=== PATIENT | female | born 1980 | race Caucasian/White ===

== ENCOUNTER 2020-09-23 08:35 | Emergency (ER) | payer OTHER ==
--- OUTSIDE RECORDS SUMMARY | 2020-09-23 08:43 | XMS REPORT | Continuity of Care Document ---
:1980 Author Organization [facility] t Address [address] [place] [address] Care Team Providers Name Role Phone Vale GONGORA, T Attending Clinician Unavailable Lab, Fam Pob I Attending Clinician Unavailable Doctor Unassigned, Name Attending Clinician Unavailable Problems This patient has no known problems. Allergies, Adverse Reactions, Alerts This patient has no known allergies or adverse reactions. Medications This patient has no known medications. Procedures This patient has no known procedures. Encounters Start End Encounter Admission Attending Care Care Encounter Source Date/Time Date/Time Type Type Clinicians Facility Department ID 2020-05-02 2020-05-02 Letter MIGUEL Collazo [id number] 00:00:00 00:00:00 (Out) Lolita CARRILLOY [id number] [place] [id number] 2020-04-28 2020-04-28 Laboratory Lab, [facility] [id number] 09:44:20 10:04:20 Only Fam Pob I Health [id number] [place] [id number] [place] [phone] [address] 2020-04-28 2020-04-28 Letter Doctor RIVERA [id number] 00:00:00 00:00:00 (Out) LIBAN Méndez [id number] [place] [id number] Results This patient has no known results.
--- NOTE | 2020-09-23 09:31 | RAD REPORT ---
EXAM DESCRIPTION: RAD - Neck Soft Tissue - 09/23/2020 9:25 am CLINICAL HISTORY: Foreign body in the throat FINDINGS: A radiopaque foreign body is not visualized. Prevertebral soft tissues normal. No gross abnormality of the airway seen
--- NOTE | 2020-09-23 09:58 | EDPHYS ---
Physician Documentation [facility] Name: Malinda Tai Age: 40 yrs Sex: Female : 1980 Arrival Date: 09/23/2020 Time: 08:38 Bed 4 Private MD: Jostin Bowen HPI: 09/23 09:04 This 40 yrs old Female presents to ER via Unassigned with complaints of carlos Foreign Body In Throat - chicken bone. 09:04 The patient or guardian reports the patient has a suspected foreign body, of the carlos throat. The reported likely foreign body is a chicken bone. Onset: The symptoms/episode began/occurred 1 day(s) ago. Current symptoms: none. Treatment Prior to Arrival: none. The patient has not experienced similar symptoms in the past. 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 - Social history:: Smoking status: Patient denies any tobacco usage or history of. - Family history:: not pertinent. ROS: 09:04 Constitutional: Negative for fever, chills, and weight loss, Eyes: Negative for injury, carlos pain, redness, and discharge, Neck: Negative for injury, pain, and swelling, Cardiovascular: Negative for chest pain, palpitations, and edema, Respiratory: Negative for shortness of breath, cough, wheezing, and pleuritic chest pain, Abdomen/GI: Negative for abdominal pain, nausea, vomiting, diarrhea, and constipation, Back: Negative for injury and pain, : Negative for injury, bleeding, discharge, and swelling, MS/Extremity: Negative for injury and deformity, Skin: Negative for injury, rash, and discoloration, Neuro: Negative for headache, weakness, numbness, tingling, and seizure, Psych: Negative for depression, anxiety, suicide ideation, homicidal ideation, and hallucinations, Allergy/Immunology: Negative for hives, rash, and allergies, Endocrine: Negative for neck swelling, polydipsia, polyuria, polyphagia, and marked weight changes, Hematologic/Lymphatic: Negative for swollen nodes, abnormal bleeding, and unusual bruising. 09:04 ENT: Positive for foreign body sensation. Exam: 09:04 Constitutional: This is a well developed, well nourished patient who is awake, alert, carlos and in no acute distress. Head/Face: Normocephalic, atraumatic. Eyes: Pupils equal round and reactive to light, extra-ocular motions intact. Lids and lashes normal. Conjunctiva and sclera are non-icteric and not injected. Cornea within normal limits. Periorbital areas with no swelling, redness, or edema. ENT: Nares patent. No nasal discharge, no septal abnormalities noted. Tympanic membranes are normal and external auditory canals are clear. Oropharynx with no redness, swelling, or masses, exudates, or evidence of obstruction, uvula midline. Mucous membranes moist. Neck: Trachea midline, no thyromegaly or masses palpated, and no cervical lymphadenopathy. Supple, full range of motion without nuchal rigidity, or vertebral point tenderness. No Meningismus. Chest/axilla: Normal chest wall appearance and motion. Nontender with no deformity. No lesions are appreciated. Cardiovascular: Regular rate and rhythm with a normal S1 and S2. No gallops, murmurs, or rubs. Normal PMI, no JVD. No pulse deficits. Respiratory: Lungs have equal breath sounds bilaterally, clear to auscultation and percussion. No rales, rhonchi or wheezes noted. No increased work of breathing, no retractions or nasal flaring. Abdomen/GI: Soft, non-tender, with normal bowel sounds. No distension or tympany. No guarding or rebound. No evidence of tenderness throughout. Back: No spinal tenderness. No costovertebral tenderness. Full range of motion. Female : Normal external genitalia. Skin: Warm, dry with normal turgor. Normal color with no rashes, no lesions, and no evidence of cellulitis. MS/ Extremity: Pulses equal, no cyanosis. Neurovascular intact. Full, normal range of motion. Neuro: Awake and alert, GCS 15, oriented to person, place, time, and situation. Cranial nerves II-XII grossly intact. Motor strength 5/5 in all extremities. Sensory grossly intact. Cerebellar exam normal. Normal gait. Psych: Awake, alert, with orientation to person, place and time. Behavior, mood, and affect are within normal limits. Vital Signs: 08:40 BP 139 / 81; Pulse 82; Resp 18 S; Temp 98.3(O); Pulse Ox 100% on R/A; Weight 72.12 kg aa5 (R); Height 5 ft. 1 in. (154.94 cm) (R); 09:35 BP 141 / 96; Pulse 67; Resp 17; Pulse Ox 100% ; jl7 10:38 BP 141 / 89; Pulse 64; Resp 15; Pulse Ox 100% ; jl7 08:40 Body Mass Index 30.04 (72.12 kg, 154.94 cm) aa5 MDM: 08:41 Patient medically screened. [facility] 09:05 Data reviewed: vital signs, nurses notes, radiologic studies, plain films. Data [facility] interpreted: teletypesetter monitor: rate is 75 beats/min, rhythm is regular, Pulse oximetry: on room air is 100 %. Test interpretation: by ED physician or midlevel provider: plain radiologic studies. Counseling: I had a detailed discussion with the patient and/or guardian regarding: the historical points, exam findings, and any diagnostic results supporting the discharge/admit diagnosis, radiology results, the need for outpatient follow up, for definitive care, a imaging technologist. 09/23 10:30 Order name: SARS-COV-2 RT PCR [facility] 09/23 09:03 Order name: Neck Soft Tissue XRAY [facility] Administered Medications: No medications were administered Disposition: 09/23/20 09:58 Discharged to Home. Impression: Superficial foreign body of throat - per patient. - Condition is Stable. - Discharge Instructions: Swallowed Foreign Body, Adult, Swallowed Foreign Body, Adult, [id number]. - Medication Reconciliation Form, Thank You Letter, Antibiotic Education, Prescription Opioid Use form. - Follow up: Dorothy Ross MD; When: Upon discharge from the Emergency Department; Reason: Recheck today's complaints, Re-evaluation by your physician. - Problem is new. - Symptoms have improved. Signatures: Dispatcher [employer] [facility] Jostin Moura MD MD cha Williams, Irene RN ROLAN Zuleima Lam RN RN aa5 Garrison Real RN RN jl7 Corrections: (The following items were deleted from the chart) 09:44 09:23 CORONAVIRUS+MRBILLY.BRZ ordered. EDHI EDMS 10:39 09:58 09/23/2020 09:58 Discharged to Home. Impression: Superficial foreign body of jl7 throat - per patient. Condition is Stable. Forms are Medication Reconciliation Form, Thank You Letter, Antibiotic Education, Prescription Opioid Use. Follow up: Dorothy Ross; When: Upon discharge from the Emergency Department; Reason: Recheck today's complaints, Re-evaluation by your physician. Problem is new. Symptoms have improved. carlos
--- NOTE | 2020-09-23 09:58 | ER ---
Nurse's Notes [facility] Name: Malinda Tai Age: 40 yrs Sex: Female : 1980 Arrival Date: 09/23/2020 Time: 08:38 Bed 4 Private MD: Diagnosis: Superficial foreign body of throat-per patient Presentation: 09/23 08:40 Chief complaint: Patient states: "I ate some chicken last night and the bone got stuck aa5 in my throat". Pt's voice is clear, pt denies nausea/vomiting. Denies SOB. 08:40 Acuity: RIP 3 aa5 08:40 Risk Assessment: Do you want to hurt yourself or someone else? Patient reports no aa5 desire to harm self or others. 08:40 Method Of Arrival: Ambulatory aa5 08:40 Coronavirus screen: Client denies travel out of the [place] in the last 14 days. At this aa5 time, the client does not indicate any symptoms associated with coronavirus-19. Ebola Screen: Patient negative for fever greater than or equal to 101.5 degrees Fahrenheit, and additional compatible Ebola Virus Disease symptoms. Initial Sepsis Screen: Does the patient meet any 2 criteria? No. Patient's initial sepsis screen is negative. Does the patient have a suspected source of infection? No. Patient's initial sepsis screen is negative. Onset of symptoms was September 22, 2020. 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 - Social history:: Smoking status: Patient denies any tobacco usage or history of. - Family history:: not pertinent. Screenin:19 Abuse screen: Denies threats or abuse. Denies injuries from another. Nutritional iw screening: No deficits noted. Tuberculosis screening: No symptoms or risk factors identified. Fall Risk None identified. Assessment: 09:19 General: Appears in no apparent distress. Behavior is calm, cooperative. Pain: iw Complains of pain in mid-sternal area. Neuro: Level of Consciousness is awake, alert, obeys commands, Oriented to person, place, time, situation, Moves all extremities. Cardiovascular: Patient's skin is warm and dry. Respiratory: Respiratory effort is even, unlabored, Respiratory pattern is regular, symmetrical. GI: Reports nausea, Patient currently denies vomiting. Derm: Skin is intact, is healthy with good turgor. Musculoskeletal: Range of motion: intact in all extremities. 10:38 Reassessment: Patient appears in no apparent distress at this time. No changes from jl7 previously documented assessment. Patient and/or family updated on plan of care and expected duration. Pain level reassessed. Patient is alert, oriented x 3, equal unlabored respirations, skin warm/dry/pink. Vital Signs: 08:40 BP 139 / 81; Pulse 82; Resp 18 S; Temp 98.3(O); Pulse Ox 100% on R/A; Weight 72.12 kg aa5 (R); Height 5 ft. 1 in. (154.94 cm) (R); 09:35 BP 141 / 96; Pulse 67; Resp 17; Pulse Ox 100% ; jl7 10:38 BP 141 / 89; Pulse 64; Resp 15; Pulse Ox 100% ; jl7 08:40 Body Mass Index 30.04 (72.12 kg, 154.94 cm) aa5 ED Course: 08:38 Patient arrived in ED. as 08:40 Arm band placed on. aa5 08:41 Jostin Moura MD is Attending Physician. carlos 08:55 Garrison Real RN is Primary Nurse. jl7 09:00 Patient has correct armband on for positive identification. Placed in gown. Bed in low jl7 position. Call light in reach. Side rails up X 1. 09:00 Pulse ox on. NIBP on. jl7 09:07 Triage completed. aa5 09:25 Neck Soft Tissue XRAY In Process Unspecified. EDMS 09:36 Debra Chapman, ROLAN is Primary Nurse. jl7 09:36 COVID swab sent to lab. jl7 09:57 Dorothy Ross MD is Referral Physician. carlos 10:37 No provider procedures requiring assistance completed. Patient did not have IV access iw during this emergency room visit. Administered Medications: No medications were administered Outcome: 09:58 Discharge ordered by . carlos 10:39 Discharged to home ambulatory. jl7 10:39 Condition: stable jl7 10:39 Discharge instructions given to patient, Instructed on discharge instructions, follow up and referral plans. Demonstrated understanding of instructions, follow-up care. 10:39 Patient left the ED. jl7 Signatures: Dispatcher [employer] EDNJ Jostin Moura MD MD cha Martinez, Amelia as Williams, Irene, RN RN iw Calderon, Audri, RN RN aa5 Garrison Real RN RN jl7
[2020-09-23 10:47] VITALS: TEMP 98.3; O2SAT 100
[2020-09-23 10:49] VITALS: BP 141/89
== END 2020-09-23 10:39 | disposition home or self-care (01) ==
LOC: ER 08:35
DX: S10.15XA Superficial foreign body of throat, initial encounter (principal); Z20.822 Contact with and (suspected) exposure to COVID-19; E07.9 Disorder of thyroid, unspecified; Z88.6 Allergy status to analgesic agent; Z98.82 Breast implant status
CPT/HCPCS: 70360; U0003; 99283